=== PATIENT | female | born 1980 | race Caucasian/White ===

== ENCOUNTER → 2016-03-06 | Outpatient (CLI) | payer BC ==
[~2016-03-06] MED LIST: ATEN25TA PO; ESCI10TA2 PO; TRAM50TA2 PO
--- NOTE | 2016-03-06 09:32 | REP ---
Clinical: Nephrolithiasis. Technique: Two supine views of the abdomen and pelvis. Comparison: 02/15/2016. Findings: Evidence for 5 mm calculus in the lower pole left kidney. Further evaluation of the urinary tract system is limited due to overlying bowel gas. No evidence for bowel obstruction. Evidence for prior cholecystectomy noted. Skeletal structures are intact and stable. Impression: Suspected 5 mm nonobstructing left intrarenal calculus. Signed by Willem Abbasi MD 03/06/2016 09:24 A
== END ==
LOC: M SMT 08:31
PROVIDERS: ATTEND Nurse Practitioner Women's Health
DX: N20.0 Calculus of kidney (principal)

== ENCOUNTER → 2016-05-27 | Outpatient (REF) | payer BC | LOC: M SMT 13:28 | PROVIDERS: ATTEND Nurse Practitioner Women's Health | DX: R30.0 Dysuria (principal) ==

== ENCOUNTER → 2016-05-29 | Outpatient (CLI) | payer BC ==
--- NOTE | 2016-05-30 08:38 | REP ---
CT abdomen pelvis without IV and oral contrast: Comparison is 02/01/2016. On the current study there is a calcification along the posterior wall of the urinary bladder slightly to the left of midline measuring eight by 4 mm. There is left hydronephrosis and hydroureter. On the comparison study there was a 7 mm calculus in the proximal left ureter just distal to the UPJ. There is no calcification in this location today. There are no left renal calculi. There are no right renal or ureteral calculi. There is no perinephric stranding on the right or the left. The visualized lung marvin are unremarkable. The unenhanced hepatic parenchyma, pancreas and spleen are unremarkable. There are surgical clips in the gallbladder fossa, unchanged. The adrenals and abdominal aorta are unremarkable. The bowel and mesentery are unremarkable. Pelvis: The appendix cannot be identified, however there is no pericecal inflammation or abscess. The uterus and adnexa are unremarkable except for occasional phleboliths in the previous described left bladder/distal ureteral calculus. There is no ascites or adenopathy. The pelvic bowel loops are unremarkable. Impression: There is a calculus along the posterior wall of the urinary bladder slightly to the left of midline as described. This calculus could be at the distal tip of the left ureter could have passed into the urinary bladder. There is left hydronephrosis. On the comparison study there was a calculus in the proximal left ureter just distal to the UPJ. Signed by Brett Ruelas MD 05/30/2016 08:31 A
== END ==
LOC: M RAD 18:03
PROVIDERS: ATTEND Nurse Practitioner Women's Health
DX: R10.9 Unspecified abdominal pain (principal)

== ENCOUNTER → 2016-06-05 | Outpatient (REF) | payer BC | LOC: M SMT 12:46 | PROVIDERS: ATTEND Nurse Practitioner Women's Health | DX: N20.0 Calculus of kidney (principal) ==

== ENCOUNTER → 2017-03-14 | Outpatient (REF) | payer OTHER ==
[2017-03-14 18:41] LABS: RHEUMATOID FACTOR QUANT < 10.0 IU/ML (0-15.0)
[2017-03-17 14:11] LABS: ANTINUCLEAR ANTIBODIES DIRECT Negative (Negative)
== END ==
LOC: M LAB REF 16:33
DX: M25.579 Pain in unspecified ankle and joints of unspecified foot (principal)

== ENCOUNTER → 2017-04-11 | Outpatient (REF) | payer OTHER | LOC: M LAB REF 12:58 | DX: J11.1 Influenza due to unidentified influenza virus with other respiratory manifestations (principal) ==

== ENCOUNTER → 2018-09-28 | Outpatient (REF) | payer OTHER ==
[2018-10-01 14:51] LABS: HPV HYBRID CAPTURE II Negative (Negative)
== END ==
LOC: M SFHCPLAZ 11:13
PROVIDERS: ATTEND Family Medicine
DX: Z12.4 Encounter for screening for malignant neoplasm of cervix (principal); R68.89 Other general symptoms and signs
CPT/HCPCS: 36415; 84443; 87624; G0123

== ENCOUNTER → 2019-07-20 | Outpatient (REF) | payer OTHER ==
[~2019-07-20] MED LIST changes: +BARI1CAP PO; +BIOT5TAB3 PO; +BISO5TAB14 PO; +BLAC1CAP2 PO; +CLAR10CA3 PO; +FERR325T16 PO; +LEXA1TAB2 PO; +MIRA3350 PO; +OMEP-218 PO; +VITA250T4 PO
[2019-07-20 22:45] LABS: CHLAMYDIA DNA AMPLIFICATION NEGATIVE (NEGATIVE); GC DNA AMPLIFICATION NEGATIVE (NEGATIVE)
== END ==
LOC: M SFHCPLAZ 14:43
PROVIDERS: ATTEND Family Medicine
DX: Z11.3 Encounter for screening for infections with a predominantly sexual mode of transmission (principal)

== ENCOUNTER → 2019-08-04 | Outpatient (CLI) | payer OTHER ==
[~2019-08-04] MED LIST changes: +ESCI5SOL3 PO
[2019-08-04 12:34] LABS: BASO % 0.5 % (0.0-1.0); EOS # 0.1 10^3/uL (0.0-0.5); EOS % 1.2 % (0.0-3.0); HEMATOCRIT 39.4 % (36.0-47.0); HEMOGLOBIN 12.9 g/dl (12.0-15.5); LYMPH # 1.8 10^3/uL (1.5-5.0); LYMPH % 31.9 % (24.0-44.0); MEAN CORPUSCULAR HEMOGLOBIN 29.9 pg (27.0-33.0); MEAN CORPUSCULAR HGB CONC 32.7 g/dl (32.0-36.5); MEAN CORPUSCULAR VOLUME 91.4 fl (80.0-96.0); MONO # 0.4 10^3/uL (0.0-0.8); MONO % 7.3 % (0.0-5.0); NEUTROPHILS # 3.4 10^3/uL (1.5-8.5); NEUTROPHILS % 58.9 % (36.0-66.0); PLATELET COUNT, AUTOMATED 279 10^3/uL (150-450); RED BLOOD COUNT 4.31 10^6/uL (4.00-5.40); WHITE BLOOD COUNT 5.8 10^3/uL (4.0-10.0)
[2019-08-04 13:06] LABS: PERCENT SATURATION 36.3 % (13.2-45.0)
[2019-08-04 13:08] LABS: FOLATE 18.8 NG/ML
== END ==
LOC: M WUC 10:43
PROVIDERS: ATTEND Internal Medicine Hematology
DX: E61.1 Iron deficiency (principal)

== ENCOUNTER → 2019-09-28 | Outpatient (REF) | payer OTHER ==
[~2019-09-28] MED LIST changes: +LEXA1TAB PO
[2019-11-08 06:27] LABS: COPPER PLASMA SEE SEPARATE REPORT; VITAMIN B6,PYRIDOXAL PHOSPHATE See Separate Report; ZINC PLASMA See Separate Report
[2019-11-08 06:28] LABS: VITAMIN B1 LEVEL WHOLE BLOOD See Separate Report
[2019-11-23 10:26] LABS: ALBUMIN 3.9 GM/DL (3.2-5.2); ALT/SGPT 34 U/L (12-78); BILIRUBIN,DIRECT < 0.1 MG/DL (0.0-0.2); BILIRUBIN,TOTAL 0.3 MG/DL (0.2-1.0); FERRITIN 106 NG/ML (8-252); FOLATE 23.6 NG/ML (>5.4); IRON (FE) 99 UG/DL (50-170); PERCENT SATURATION 46.7 % (13.2-45.0); PREALBUMIN 20.1 MG/DL (20.0-40.0); TOTAL IRON BINDING CAPACITY 212 UG/DL (250-450); TOTAL PROTEIN 6.6 GM/DL (6.4-8.2)
== END ==
LOC: M PLALAB 11:04
PROVIDERS: ATTEND Physician Assistant
DX: Z98.84 Bariatric surgery status (principal)

== ENCOUNTER → 2019-12-02 | Outpatient (CLI) | payer OTHER ==
[2019-12-02 16:44] LABS: BASO % 0.5 % (0.0-1.0); EOS # 0.1 10^3/uL (0.0-0.5); EOS % 1.4 % (0.0-3.0); HEMATOCRIT 38.5 % (36.0-47.0); HEMOGLOBIN 12.5 g/dl (12.0-15.5); LYMPH # 2.2 10^3/uL (1.5-5.0); LYMPH % 37.8 % (24.0-44.0); MEAN CORPUSCULAR HEMOGLOBIN 29.7 pg (27.0-33.0); MEAN CORPUSCULAR HGB CONC 32.5 g/dl (32.0-36.5); MEAN CORPUSCULAR VOLUME 91.4 fl (80.0-96.0); MONO # 0.4 10^3/uL (0.0-0.8); MONO % 7.2 % (0.0-5.0); NEUTROPHILS # 3.1 10^3/uL (1.5-8.5); NEUTROPHILS % 52.9 % (36.0-66.0); PLATELET COUNT, AUTOMATED 276 10^3/uL (150-450); RED BLOOD COUNT 4.21 10^6/uL (4.00-5.40); WHITE BLOOD COUNT 5.9 10^3/uL (4.0-10.0)
[2019-12-02 17:18] LABS: PERCENT SATURATION 28.9 % (13.2-45.0)
== END ==
LOC: M LAB 15:55
PROVIDERS: ATTEND Specialist
DX: E61.1 Iron deficiency (principal)

== ENCOUNTER → 2020-02-15 | Outpatient (CLI) | payer OTHER ==
[2020-02-15 15:55] LABS: BASO % 0.6 % (0.0-1.0); EOS # 0.1 10^3/uL (0.0-0.5); EOS % 1.7 % (0.0-3.0); HEMATOCRIT 40.5 % (36.0-47.0); HEMOGLOBIN 12.7 g/dl (12.0-15.5); LYMPH # 2.1 10^3/uL (1.5-5.0); LYMPH % 32.5 % (24.0-44.0); MEAN CORPUSCULAR HEMOGLOBIN 29.1 pg (27.0-33.0); MEAN CORPUSCULAR HGB CONC 31.4 g/dl (32.0-36.5); MEAN CORPUSCULAR VOLUME 92.7 fl (80.0-96.0); MONO # 0.5 10^3/uL (0.0-0.8); NEUTROPHILS # 3.7 10^3/uL (1.5-8.5); PLATELET COUNT, AUTOMATED 278 10^3/uL (150-450); RED BLOOD COUNT 4.37 10^6/uL (4.00-5.40); WHITE BLOOD COUNT 6.4 10^3/uL (4.0-10.0)
[2020-02-15 16:25] LABS: PERCENT SATURATION 30.7 % (13.2-45.0)
== END ==
LOC: M PLALAB 11:43
PROVIDERS: ATTEND Specialist
DX: D50.9 Iron deficiency anemia, unspecified (principal); Z88.2 Allergy status to sulfonamides

== ENCOUNTER → 2020-06-06 | Outpatient (REF) | payer OTHER ==
[~2020-06-06] MED LIST changes: +ESCI10TA16 PO; -ESCI10TA2 PO; +FERR324T21 PO; -FERR325T16 PO
[2020-06-06 11:18] LABS: BASO % 0.7 % (0.0-1.0); EOS # 0.1 10^3/uL (0.0-0.5); EOS % 1.7 % (0.0-3.0); HEMATOCRIT 41.5 % (36.0-47.0); HEMOGLOBIN 13.3 g/dl (12.0-15.5); LYMPH # 1.8 10^3/uL (1.5-5.0); LYMPH % 31.2 % (24.0-44.0); MEAN CORPUSCULAR HEMOGLOBIN 29.5 pg (27.0-33.0); MONO # 0.5 10^3/uL (0.0-0.8); MONO % 7.7 % (2.0-8.0); NEUTROPHILS # 3.4 10^3/uL (1.5-8.5); NEUTROPHILS % 58.4 % (36.0-66.0); PLATELET COUNT, AUTOMATED 255 10^3/uL (150-450); RED BLOOD COUNT 4.51 10^6/uL (4.00-5.40); WHITE BLOOD COUNT 5.8 10^3/uL (4.0-10.0)
== END ==
LOC: M PLALAB 07:59
PROVIDERS: ATTEND Family Medicine
DX: R59.0 Localized enlarged lymph nodes (principal)

== ENCOUNTER → 2020-12-07 | Outpatient (CLI) | payer OTHER ==
--- NOTE | 2020-12-08 11:22 | DEXAMM ---
INDICATION: HX GASTRIC BYPASS, IRON DEFICIENCY,HYPOGLYCEMIA. COMPARISON: None. TECHNIQUE: Bone density was measured using dual-energy x-ray absorptiometry (DEXA). FINDINGS: AP SPINE L1-L4 BMD 1.082 g/cm2 Young Adult T-Score -0.9 Age Matched Z-Score -0.9. LT FEMUR, TOTAL BMD 1.026 g/cm2 Young Adult T-Score 0.1 Age Matched Z-Score 0.4. LT NECK BMD 0.968 g/cm2 Young Adult T-Score -0.5 Age Matched Z-Score 0.0. RT FEMUR, TOTAL BMD 1.014 g/cm2 Young Adult T-Score 0.1 Age Matched Z-Score 0.3. RT NECK BMD 0.951 g/cm2 Young Adult T-Score -0.6 Age Matched Z-Score -0.2. IMPRESSION: There is normal bone density of the spine. There is normal bone density of the left hip. There is normal bone density of the right hip. FOLLOW-UP: Recommendation for the next bone density exam: 5 years. <Electronically signed by Brett Hughes > 12/08/20 [id number]
== END ==
LOC: M WHC 15:15
PROVIDERS: ATTEND Surgery
DX: E61.1 Iron deficiency (principal); E16.2 Hypoglycemia, unspecified; Z71.3 Dietary counseling and surveillance; Z98.84 Bariatric surgery status

== ENCOUNTER → 2020-12-14 | Outpatient (CLI) | payer OTHER ==
[~2020-12-14] MED LIST changes: +E-Z-GAS II EFFERVESCENT PACKET (SODIUM BICARB./CITRIC ACID/SIMETHICONE) As Ordered ONE; +E-Z-HD 98% w/w 340GM SUSP BTL As Ordered ONE; +E-Z-PAQUE 96% w/w SUSP 176GM BTL As Ordered ONE; +GASTROGRAFIN SOLUTION 30ML (Q9963) As Ordered ONE
[2020-12-14 08:36] LABS: HEMATOCRIT 40.8 % (36.0-47.0); HEMOGLOBIN 13.3 g/dl (12.0-15.5); MEAN CORPUSCULAR HEMOGLOBIN 30.2 pg (27.0-33.0); MEAN CORPUSCULAR HGB CONC 32.6 g/dl (32.0-36.5); MEAN CORPUSCULAR VOLUME 92.5 fl (80.0-96.0); PLATELET COUNT, AUTOMATED 275 10^3/uL (150-450); RED BLOOD COUNT 4.41 10^6/uL (4.00-5.40); WHITE BLOOD COUNT 4.7 10^3/uL (4.0-10.0)
[2020-12-14 09:11] LABS: BILIRUBIN,DIRECT 0.1 MG/DL (0.0-0.2); BILIRUBIN,TOTAL 0.4 MG/DL (0.2-1.0)
[2020-12-14 09:12] LABS: ALBUMIN 3.5 GM/DL (3.2-5.2); CHOLESTEROL RISK RATIO 1.939 (<5); MAGNESIUM LEVEL 2.2 MG/DL (1.8-2.4); PERCENT SATURATION 34.5 % (13.2-45.0); THYROID STIMULATING HORMONE 0.494 uIU/ML (0.358-3.740); TOTAL PROTEIN 6.3 GM/DL (6.4-8.2)
[2020-12-14 13:24] LABS: FOLATE 17.5 NG/ML (>5.4); TOTAL 25(OH) VITAMIN D 38.7 NG/ML (30.0-100.0)
--- NOTE | 2020-12-15 16:23 | REP ---
INDICATION: LOWER ABD PAIN-LABS FIRST. COMPARISON: None TECHNIQUE: This procedure was performed by CHARLOTTE Gaffney, under the direct supervision of Dr. Hughes. Images were reviewed with Dr. Hughes prior to dictation. Because the patient is status post [id number]-Y surgery liquid barium was given in the erect position as well as in the prone oblique position in order to perform a single contrast upper GI examination. Additional liquid barium was given at the end of the examination in order to perform a small-bowel follow-through. FINDINGS: The social services specialist film shows no organomegaly or pathological masses. There is a moderate amount of stool seen within the colon. The intestinal gas pattern is unremarkable. The oral and pharyngeal stages of deglutition were unremarkable. Esophageal transport is prompt and efficient and there is no evidence of esophagitis, stricture, or mucosal ring. There is evidence of a small hiatal hernia. Gastroesophageal reflux was not observed on this examination. The remaining stomach ospina are normally outlined. There is free flow of contrast through the anastomosis into the small intestine. No stricture or ulcer is visualized. The visualized portion of the proximal small bowel appears normal in course and caliber. Additional liquid barium was administered at the end of the end of the exam and followed through the small bowel to the level of the terminal ileum. Small bowel transit time is approximately 335 minutes. During fluoroscopy gentle palpation shows all loops are freely movable and pliable. There are no fixture angulated loops. The small bowel mucosal pattern is normal in course and caliber. There is no transition to suggest a partial small bowel obstruction. Terminal ileum was not visualized well due to crowding of small bowel loops. IMPRESSION: There is a small hiatal hernia. Small bowel follow-through transit time was approximately 335 minutes. 1.7 minutes of fluoroscopy time was utilized for this procedure. Some fluoroscopic images are performed with last image hold technology. These images require no additional radiation. <Electronically signed by Sheila Rodriguez > 12/15/20 [id number] <Electronically signed by Brett Hughes > 12/15/20 [id number]
== END ==
LOC: M RAD 07:27
PROVIDERS: ATTEND Surgery
DX: R10.30 Lower abdominal pain, unspecified (principal); Z98.84 Bariatric surgery status; Z71.3 Dietary counseling and surveillance; K44.9 Diaphragmatic hernia without obstruction or gangrene
CPT/HCPCS: 36415; 74246; 80061; 80076; 82306; 82525; 82607; 82728; 82746; 83550; 83735; 84255; 84425; 84443; 84590; 84630; 85027; Q9963

== ENCOUNTER → 2021-03-16 | Outpatient (CLI) | payer OTHER ==
[~2021-03-16] MED LIST changes: -E-Z-GAS II EFFERVESCENT PACKET (SODIUM BICARB./CITRIC ACID/SIMETHICONE) As Ordered ONE; -E-Z-HD 98% w/w 340GM SUSP BTL As Ordered ONE; -E-Z-PAQUE 96% w/w SUSP 176GM BTL As Ordered ONE; -GASTROGRAFIN SOLUTION 30ML (Q9963) As Ordered ONE; +OMEP-173 PO; -OMEP-218 PO
[2021-03-16 10:43] LABS: BASO % 0.5 % (0.0-1.0); EOS # 0.1 10^3/uL (0.0-0.5); EOS % 0.9 % (0.0-3.0); HEMOGLOBIN 11.9 g/dl (12.0-15.5); LYMPH # 1.8 10^3/uL (1.5-5.0); LYMPH % 22.6 % (24.0-44.0); MEAN CORPUSCULAR HEMOGLOBIN 29.5 pg (27.0-33.0); MEAN CORPUSCULAR HGB CONC 32.2 g/dl (32.0-36.5); MEAN CORPUSCULAR VOLUME 91.6 fl (80.0-96.0); MONO # 0.7 10^3/uL (0.0-0.8); MONO % 8.2 % (2.0-8.0); NEUTROPHILS # 5.4 10^3/uL (1.5-8.5); NEUTROPHILS % 67.4 % (36.0-66.0); PLATELET COUNT, AUTOMATED 348 10^3/uL (150-450); RED BLOOD COUNT 4.04 10^6/uL (4.00-5.40)
[2021-03-16 11:21] LABS: ALBUMIN 3.2 GM/DL (3.2-5.2); ALT/SGPT 17 U/L (12-78); BILIRUBIN,TOTAL 0.3 MG/DL (0.2-1.0); BLOOD UREA NITROGEN 9 MG/DL (7-18); CALCIUM LEVEL 8.5 MG/DL (8.5-10.1); CARBON DIOXIDE LEVEL 30 MEQ/L (21-32); CHLORIDE LEVEL 109 MEQ/L (98-107); CREATININE FOR GFR 0.63 MG/DL (0.55-1.30); FERRITIN 90 NG/ML (8-252); GLOMERULAR FILTRATION RATE > 60.0 (>58); GLUCOSE, FASTING 77 MG/DL (70-100); IRON (FE) 28 UG/DL (50-170); PERCENT SATURATION 13.4 % (13.2-45.0); POTASSIUM SERUM 4.1 MEQ/L (3.5-5.1); SODIUM LEVEL 141 MEQ/L (136-145); TOTAL IRON BINDING CAPACITY 209 UG/DL (250-450); TOTAL PROTEIN 6.4 GM/DL (6.4-8.2)
== END ==
LOC: M PLALAB 09:19
PROVIDERS: ATTEND Specialist
DX: D50.9 Iron deficiency anemia, unspecified (principal); Z88.2 Allergy status to sulfonamides

== ENCOUNTER → 2021-05-05 | Outpatient (CLI) | payer OTHER ==
[~2021-05-05] MED LIST changes: +BACL10TA2
== END ==
LOC: M LABSMTC 10:53
PROVIDERS: ATTEND Anesthesiology
DX: Z01.812 Encounter for preprocedural laboratory examination (principal); Z20.822 Contact with and (suspected) exposure to COVID-19

== ENCOUNTER 2021-05-10 09:57 | Day surgery (SDC) | payer OTHER ==
[~2021-05-10] VITALS: Ht 165.1 cm; Wt 78.5 kg
[~2021-05-10 09:57] MED LIST changes: +NS 1,000 ML IV ONE
[2021-05-10] MEDS ORDERED: SING10TA32 PO (10:19)
[2021-05-10] MEDS ORDERED: propofoL 200 MG/20 ML VIAL As Ordered ONE ×3 (10:57→11:59)
[2021-05-10] MEDS ORDERED: LIDOCAINE 2% 100MG/5ML SDV (FOR ANES.) As Ordered ONE (10:57)
[2021-05-10 12:33] VITALS: BP 120/68
== END 2021-05-10 12:34 | disposition home or self-care (01) ==
LOC: M OPP 09:57
PROVIDERS: ATTEND Internal Medicine Gastroenterology
DX: R19.4 Change in bowel habit (principal); R10.13 Epigastric pain; K63.5 Polyp of colon; D13.1 Benign neoplasm of stomach; K64.8 Other hemorrhoids; Z98.0 Intestinal bypass and anastomosis status; K58.9 Irritable bowel syndrome, unspecified; F41.9 Anxiety disorder, unspecified; G43.909 Migraine, unspecified, not intractable, without status migrainosus; Z88.2 Allergy status to sulfonamides; Z79.899 Other long term (current) drug therapy; Z87.442 Personal history of urinary calculi

== ENCOUNTER → 2021-09-18 | Outpatient (CLI) | payer OTHER ==
[~2021-09-18] MED LIST changes: -NS 1,000 ML IV ONE; +PHEN30CA21; +SING10TA32 PO
[2021-09-18 14:31] LABS: CHOLESTEROL RISK RATIO 2.197 (<5)
== END ==
LOC: M PLALAB 09:22
PROVIDERS: ATTEND Physician Assistant
DX: Z13.220 Encounter for screening for lipoid disorders (principal)

== ENCOUNTER → 2021-09-18 | Outpatient (CLI) | payer OTHER ==
[2021-09-18 14:17] LABS: BASO # 0.1 10^3/uL (0.0-0.2); BASO % 1.3 % (0.0-1.0); EOS # 0.1 10^3/uL (0.0-0.5); EOS % 1.3 % (0.0-3.0); HEMATOCRIT 42.4 % (36.0-47.0); HEMOGLOBIN 13.8 g/dl (12.0-15.5); LYMPH # 1.6 10^3/uL (1.5-5.0); LYMPH % 33.3 % (24.0-44.0); MEAN CORPUSCULAR HGB CONC 32.5 g/dl (32.0-36.5); MEAN CORPUSCULAR VOLUME 92.2 fl (80.0-96.0); MONO # 0.3 10^3/uL (0.0-0.8); MONO % 5.8 % (2.0-8.0); NEUTROPHILS # 2.7 10^3/uL (1.5-8.5); NEUTROPHILS % 58.1 % (36.0-66.0); PLATELET COUNT, AUTOMATED 293 10^3/uL (150-450); WHITE BLOOD COUNT 4.7 10^3/uL (4.0-10.0)
[2021-09-18 14:31] LABS: PERCENT SATURATION 39.8 % (13.2-45.0)
== END ==
LOC: M PLALAB 09:19
PROVIDERS: ATTEND Specialist
DX: D50.9 Iron deficiency anemia, unspecified (principal)

== ENCOUNTER → 2021-09-20 | Outpatient (CLI) | payer OTHER | LOC: M PLAIMG 08:16 | PROVIDERS: ATTEND Physician Assistant | DX: M77.32 Calcaneal spur, left foot (principal); M79.672 Pain in left foot ==

== ENCOUNTER → 2021-10-03 | Outpatient (CLI) | payer OTHER | LOC: M RAD 09:20 | PROVIDERS: ATTEND Podiatrist Foot & Ankle Surgery | DX: M79.672 Pain in left foot (principal) ==

== ENCOUNTER → 2022-01-01 | Outpatient (REF) | payer OTHER | LOC: M SFHCPLAZ 08:00 | PROVIDERS: ATTEND Physician Assistant | DX: R30.0 Dysuria (principal) ==

== ENCOUNTER → 2022-04-15 | Outpatient (CLI) | payer OTHER ==
[2022-04-15 16:28] LABS: BASO % 0.5 % (0.0-1.0); EOS # 0.1 10^3/uL (0.0-0.5); EOS % 0.7 % (0.0-3.0); HEMATOCRIT 39.4 % (36.0-47.0); HEMOGLOBIN 12.7 g/dl (12.0-15.5); LYMPH # 2.2 10^3/uL (1.5-5.0); LYMPH % 30.3 % (24.0-44.0); MEAN CORPUSCULAR HEMOGLOBIN 29.9 pg (27.0-33.0); MEAN CORPUSCULAR HGB CONC 32.2 g/dl (32.0-36.5); MEAN CORPUSCULAR VOLUME 92.7 fl (80.0-96.0); MONO # 0.5 10^3/uL (0.0-0.8); MONO % 6.9 % (2.0-8.0); NEUTROPHILS # 4.5 10^3/uL (1.5-8.5); NEUTROPHILS % 61.2 % (36.0-66.0); PLATELET COUNT, AUTOMATED 306 10^3/uL (150-450); RED BLOOD COUNT 4.25 10^6/uL (4.00-5.40); WHITE BLOOD COUNT 7.4 10^3/uL (4.0-10.0)
[2022-04-15 16:42] LABS: ALBUMIN 3.6 G/DL (3.2-5.2); ALKALINE PHOSPHATASE 57 U/L (46-116); ALT/SGPT 21 U/L (7.0-40); AST/SGOT 23 U/L (<34); BILIRUBIN,TOTAL 0.4 MG/DL (0.3-1.2); BLOOD UREA NITROGEN 15 MG/DL (9-23); CALCIUM LEVEL 9.2 MG/DL (8.5-10.1); CARBON DIOXIDE LEVEL 28 MMOL/L (20-31); CHLORIDE LEVEL 107 MMOL/L (98-107); CREATININE FOR GFR 0.75 MG/DL (0.55-1.30); FERRITIN 16.8 NG/ML (7.3-270.7); GLOMERULAR FILTRATION RATE > 60.0 (>58); GLUCOSE, FASTING 87 MG/DL (60-100); IRON (FE) 149 UG/DL (50-170); PERCENT SATURATION 48.4 % (13.2-45.0); POTASSIUM SERUM 4.2 MMOL/L (3.5-5.1); SODIUM LEVEL 141 MMOL/L (136-145); TOTAL IRON BINDING CAPACITY 308 UG/DL (250-425)
[2022-04-15 16:44] LABS: FOLATE > 24.00 NG/ML (>5.4); VITAMIN B12 LEVEL 326 PG/ML (211-911)
== END ==
LOC: M PLALAB 12:24
PROVIDERS: ATTEND Internal Medicine
DX: D50.9 Iron deficiency anemia, unspecified (principal); K90.49 Malabsorption due to intolerance, not elsewhere classified

== ENCOUNTER → 2022-05-14 | Outpatient (CLI) | payer OTHER ==
[~2022-05-14] MED LIST changes: +MONT-5 PO; -SING10TA32 PO
[2022-05-14 11:31] LABS: FREE T4 1.01 NG/DL (0.89-1.76); THYROID STIMULATING HORMONE 1.07 uIU/ML (0.55-4.78)
== END ==
LOC: M PLALAB 08:00
PROVIDERS: ATTEND Physician Assistant
DX: E66.9 Obesity, unspecified (principal)

== ENCOUNTER → 2022-07-17 | Outpatient (CLI) | payer OTHER ==
[2022-07-17 13:43] LABS: BASO % 0.5 % (0.0-1.0); EOS # 0.1 10^3/uL (0.0-0.5); EOS % 1.6 % (0.0-3.0); HEMATOCRIT 37.9 % (36.0-47.0); HEMOGLOBIN 12.4 g/dl (12.0-15.5); LYMPH # 1.7 10^3/uL (1.5-5.0); LYMPH % 31.2 % (24.0-44.0); MEAN CORPUSCULAR HEMOGLOBIN 29.8 pg (27.0-33.0); MEAN CORPUSCULAR HGB CONC 32.7 g/dl (32.0-36.5); MEAN CORPUSCULAR VOLUME 91.1 fl (80.0-96.0); MONO # 0.5 10^3/uL (0.0-0.8); MONO % 8.5 % (2.0-8.0); NEUTROPHILS # 3.2 10^3/uL (1.5-8.5); NEUTROPHILS % 57.8 % (36.0-66.0); PLATELET COUNT, AUTOMATED 272 10^3/uL (150-450); RED BLOOD COUNT 4.16 10^6/uL (4.00-5.40); WHITE BLOOD COUNT 5.5 10^3/uL (4.0-10.0)
[2022-07-17 14:06] LABS: ALBUMIN 3.6 G/DL (3.2-5.2); ALKALINE PHOSPHATASE 67 U/L (46-116); ALT/SGPT 18 U/L (7.0-40); AST/SGOT 26 U/L (<34); BILIRUBIN,TOTAL 0.3 MG/DL (0.3-1.2); BLOOD UREA NITROGEN 14 MG/DL (9-23); CALCIUM LEVEL 8.4 MG/DL (8.5-10.1); CARBON DIOXIDE LEVEL 28 MMOL/L (20-31); CHLORIDE LEVEL 107 MMOL/L (98-107); CREATININE FOR GFR 0.81 MG/DL (0.55-1.30); GLOMERULAR FILTRATION RATE > 60.0 (>58); GLUCOSE, FASTING 99 MG/DL (60-100); IRON (FE) 58 UG/DL (50-170); PERCENT SATURATION 18.9 % (13.2-45.0); SODIUM LEVEL 139 MMOL/L (136-145); TOTAL IRON BINDING CAPACITY 307 UG/DL (250-425); TOTAL PROTEIN 6.1 G/DL (5.7-8.2)
[2022-07-17 14:08] LABS: FERRITIN 16.4 NG/ML (7.3-270.7)
== END ==
LOC: M PLALAB 12:01
PROVIDERS: ATTEND Specialist
DX: D50.9 Iron deficiency anemia, unspecified (principal); Z98.84 Bariatric surgery status

== ENCOUNTER → 2022-07-26 | Outpatient (REF) | payer OTHER | LOC: M SFHCWAGY 10:12 | PROVIDERS: ATTEND Nurse Practitioner Family | DX: Z12.4 Encounter for screening for malignant neoplasm of cervix (principal); B37.31 Acute candidiasis of vulva and vagina | CPT/HCPCS: 87624; G0123 ==

== ENCOUNTER → 2022-08-19 | Outpatient (CLI) | payer OTHER | LOC: M WHC 09:53 | PROVIDERS: ATTEND Nurse Practitioner Family | DX: Z12.31 Encounter for screening mammogram for malignant neoplasm of breast (principal); R92.8 Other abnormal and inconclusive findings on diagnostic imaging of breast; N63.20 Unspecified lump in the left breast, unspecified quadrant ==

== ENCOUNTER → 2022-09-12 | Outpatient (REF) | payer OTHER | LOC: M SFHCPLAZ 10:16 | PROVIDERS: ATTEND Physician Assistant | DX: J02.9 Acute pharyngitis, unspecified (principal) ==

== ENCOUNTER → 2022-10-01 | Outpatient (CLI) | payer OTHER | LOC: M PLAIMG 10:40 | PROVIDERS: ATTEND Podiatrist Foot & Ankle Surgery | DX: M25.571 Pain in right ankle and joints of right foot (principal); M77.51 Other enthesopathy of right foot and ankle; M77.31 Calcaneal spur, right foot; S93.491A Sprain of other ligament of right ankle, initial encounter; X58.XXXA Exposure to other specified factors, initial encounter; Y92.9 Unspecified place or not applicable; Y93.9 Activity, unspecified; Y99.9 Unspecified external cause status ==

== ENCOUNTER → 2022-10-14 | Outpatient (CLI) | payer OTHER ==
[~2022-10-14] MED LIST changes: +BUPR150T12
[2022-10-14 09:07] LABS: BASO # 0.1 10^3/uL (0.0-0.2); BASO % 1.1 % (0.0-1.0); EOS # 0.1 10^3/uL (0.0-0.5); EOS % 1.1 % (0.0-3.0); HEMATOCRIT 42.2 % (36.0-47.0); HEMOGLOBIN 13.4 g/dl (12.0-15.5); LYMPH # 1.4 10^3/uL (1.5-5.0); LYMPH % 25.1 % (24.0-44.0); MEAN CORPUSCULAR HEMOGLOBIN 29.5 pg (27.0-33.0); MEAN CORPUSCULAR HGB CONC 31.8 g/dl (32.0-36.5); MEAN CORPUSCULAR VOLUME 92.7 fl (80.0-96.0); MONO # 0.4 10^3/uL (0.0-0.8); MONO % 6.8 % (2.0-8.0); NEUTROPHILS # 3.6 10^3/uL (1.5-8.5); NEUTROPHILS % 65.5 % (36.0-66.0); PLATELET COUNT, AUTOMATED 275 10^3/uL (150-450); RED BLOOD COUNT 4.55 10^6/uL (4.00-5.40); WHITE BLOOD COUNT 5.4 10^3/uL (4.0-10.0)
[2022-10-14 09:32] LABS: ALBUMIN 3.5 G/DL (3.2-5.2); ALKALINE PHOSPHATASE 61 U/L (46-116); ALT/SGPT 11 U/L (7.0-40); AST/SGOT 10 U/L (<34); BILIRUBIN,TOTAL 0.4 MG/DL (0.3-1.2); BLOOD UREA NITROGEN 11 MG/DL (9-23); CALCIUM LEVEL 8.5 MG/DL (8.5-10.1); CARBON DIOXIDE LEVEL 27 MMOL/L (20-31); CHLORIDE LEVEL 109 MMOL/L (98-107); GLOMERULAR FILTRATION RATE > 60.0 (>58); GLUCOSE, FASTING 112 MG/DL (60-100); IRON (FE) 79 UG/DL (50-170); PERCENT SATURATION 27.7 % (13.2-45.0); POTASSIUM SERUM 4.1 MMOL/L (3.5-5.1); SODIUM LEVEL 141 MMOL/L (136-145); TOTAL IRON BINDING CAPACITY 285 UG/DL (250-425)
[2022-10-14 09:34] LABS: FERRITIN 13.7 NG/ML (7.3-270.7)
== END ==
LOC: M LAB 08:20
PROVIDERS: ATTEND Specialist
DX: D50.9 Iron deficiency anemia, unspecified (principal); Z98.84 Bariatric surgery status

== ENCOUNTER → 2023-01-03 | Outpatient (CLI) | payer OTHER ==
[2023-01-03 09:35] LABS: IONIZED CALCIUM 4.6 MG/DL (4.5-5.3)
[2023-01-03 09:50] LABS: BASO % 0.8 % (0.0-1.0); EOS # 0.1 10^3/uL (0.0-0.5); EOS % 1.8 % (0.0-3.0); HEMATOCRIT 43.2 % (36.0-47.0); HEMOGLOBIN 13.9 g/dl (12.0-15.5); LYMPH # 1.6 10^3/uL (1.5-5.0); LYMPH % 31.5 % (24.0-44.0); MEAN CORPUSCULAR HEMOGLOBIN 29.6 pg (27.0-33.0); MEAN CORPUSCULAR HGB CONC 32.2 g/dl (32.0-36.5); MEAN CORPUSCULAR VOLUME 92.1 fl (80.0-96.0); MONO # 0.4 10^3/uL (0.0-0.8); MONO % 8.3 % (2.0-8.0); NEUTROPHILS # 2.9 10^3/uL (1.5-8.5); NEUTROPHILS % 57.4 % (36.0-66.0); PLATELET COUNT, AUTOMATED 288 10^3/uL (150-450); RED BLOOD COUNT 4.69 10^6/uL (4.00-5.40); WHITE BLOOD COUNT 5.1 10^3/uL (4.0-10.0)
[2023-01-03 10:07] LABS: HEMOGLOBIN A1c 4.9 % (4.0-6.0)
[2023-01-03 10:21] LABS: TOTAL IRON BINDING CAPACITY 316 UG/DL (250-425)
[2023-01-03 10:22] LABS: IRON (FE) 108 UG/DL (50-170); PERCENT SATURATION 34.2 % (13.2-45.0)
[2023-01-03 10:46] LABS: ALBUMIN 3.7 G/DL (3.2-5.2); ALKALINE PHOSPHATASE 62 U/L (46-116); ALT/SGPT 24 U/L (7.0-40); AST/SGOT 22 U/L (<34); BILIRUBIN,TOTAL 0.5 MG/DL (0.3-1.2); BLOOD UREA NITROGEN 13 MG/DL (9-23); CALCIUM LEVEL 8.6 MG/DL (8.5-10.1); CARBON DIOXIDE LEVEL 31 MMOL/L (20-31); CHLORIDE LEVEL 104 MMOL/L (98-107); CHOLESTEROL LEVEL 178 MG/DL (<200); CHOLESTEROL RISK RATIO 2.41 (<5); FERRITIN 16.9 NG/ML (7.3-270.7); FOLATE 17.12 NG/ML (>5.4); GLOMERULAR FILTRATION RATE > 60.0 (>58); GLUCOSE, FASTING 90 MG/DL (60-100); HDL CHOLESTEROL 73.8 MG/DL (>40); LDL CHOLESTEROL 92.2 MG/DL (<100); NON-HDL-C 104.2 MG/DL; POTASSIUM SERUM 4.3 MMOL/L (3.5-5.1); SODIUM LEVEL 140 MMOL/L (136-145); TOTAL 25(OH) VITAMIN D 34.7 NG/ML (20.0-100.0); TOTAL PROTEIN 6.3 G/DL (5.7-8.2); TRIGLYCERIDES LEVEL 60 MG/DL (<150); VITAMIN B12 LEVEL 463 PG/ML (211-911)
== END ==
LOC: M LAB 08:49 → M PLALAB 08:49
PROVIDERS: ATTEND Physician Assistant
DX: E44.0 Moderate protein-calorie malnutrition (principal); Z98.84 Bariatric surgery status

== ENCOUNTER → 2023-04-14 | Outpatient (CLI) | payer OTHER ==
[2023-04-14 11:54] LABS: BASO % 0.7 % (0.0-1.0); EOS # 0.2 10^3/uL (0.0-0.5); EOS % 2.6 % (0.0-3.0); HEMATOCRIT 40.8 % (36.0-47.0); HEMOGLOBIN 13.2 g/dl (12.0-15.5); LYMPH # 1.6 10^3/uL (1.5-5.0); LYMPH % 27.8 % (24.0-44.0); MEAN CORPUSCULAR HEMOGLOBIN 29.5 pg (27.0-33.0); MEAN CORPUSCULAR HGB CONC 32.4 g/dl (32.0-36.5); MEAN CORPUSCULAR VOLUME 91.3 fl (80.0-96.0); MONO # 0.5 10^3/uL (0.0-0.8); MONO % 7.9 % (2.0-8.0); NEUTROPHILS # 3.5 10^3/uL (1.5-8.5); NEUTROPHILS % 60.8 % (36.0-66.0); PLATELET COUNT, AUTOMATED 312 10^3/uL (150-450); RED BLOOD COUNT 4.47 10^6/uL (4.00-5.40); WHITE BLOOD COUNT 5.8 10^3/uL (4.0-10.0)
[2023-04-14 12:24] LABS: IRON (FE) 64 UG/DL (50-170)
[2023-04-14 12:25] LABS: ALBUMIN 3.3 G/DL (3.2-5.2); ALKALINE PHOSPHATASE 67 U/L (46-116); ALT/SGPT 12 U/L (7.0-40); AST/SGOT 15 U/L (<34); BILIRUBIN,TOTAL 0.2 MG/DL (0.3-1.2); BLOOD UREA NITROGEN 15 MG/DL (9-23); CALCIUM LEVEL 8.4 MG/DL (8.5-10.1); CARBON DIOXIDE LEVEL 29 MMOL/L (20-31); CHLORIDE LEVEL 111 MMOL/L (98-107); GLOMERULAR FILTRATION RATE > 60.0 (>58); GLUCOSE, FASTING 86 MG/DL (60-100); POTASSIUM SERUM 4.3 MMOL/L (3.5-5.1); SODIUM LEVEL 142 MMOL/L (136-145); TOTAL IRON BINDING CAPACITY 305 UG/DL (250-425); TOTAL PROTEIN 5.9 G/DL (5.7-8.2)
[2023-04-14 12:26] LABS: FERRITIN 10.2 NG/ML (7.3-270.7)
[2023-04-14 12:27] LABS: FOLATE 16.2 NG/ML (>5.4); VITAMIN B12 LEVEL 277 PG/ML (211-911)
== END ==
LOC: M LAB 11:06
PROVIDERS: ATTEND Specialist
DX: D50.9 Iron deficiency anemia, unspecified (principal); D51.9 Vitamin B12 deficiency anemia, unspecified

== ENCOUNTER → 2023-04-23 | Outpatient (CLI) | payer OTHER ==
[~2023-04-23] VITALS: Ht 165.1 cm; Wt 81.8 kg
[2023-04-23 15:10] VITALS: BP 129/70; O2SAT 100
[2023-04-23] MEDS: FERRIC CARBOXYMALTOSE INJ 750 MG in NS 250 ML (>50kg) IV ONE (15:24)
[2023-04-23 16:36] VITALS: BP 110/58; O2SAT 100
== END ==
LOC: M INFU 14:53
PROVIDERS: ATTEND Nurse Practitioner
DX: D50.9 Iron deficiency anemia, unspecified (principal); Z88.2 Allergy status to sulfonamides
CPT/HCPCS: 96365; J1439

== ENCOUNTER → 2023-05-23 | Outpatient (REF) | payer OTHER | LOC: M SFHCPLAZ 15:05 | PROVIDERS: ATTEND Physician Assistant | DX: J02.9 Acute pharyngitis, unspecified (principal) ==

== ENCOUNTER 2023-07-29 16:21 | Emergency (ER) | payer OTHER ==
[~2023-07-29 16:21] MED LIST changes: +VITA250T27 PO; -VITA250T4 PO
== END 2023-07-29 17:24 | disposition left against medical advice (07) ==
LOC: M ED 16:21
DX: Z53.21 Procedure and treatment not carried out due to patient leaving prior to being seen by health care provider (principal)

== ENCOUNTER → 2024-05-24 | Outpatient (CLI) | payer OTHER ==
[2024-05-24 17:46] LABS: BASO # 0.1 10^3/uL (0.0-0.2); BASO % 0.8 % (0.0-1.0); EOS # 0.1 10^3/uL (0.0-0.5); EOS % 0.8 % (0.0-3.0); HEMATOCRIT 40.7 % (36.0-47.0); LYMPH # 2.3 10^3/uL (1.5-5.0); LYMPH % 35.5 % (24.0-44.0); MEAN CORPUSCULAR HEMOGLOBIN 29.5 pg (27.0-33.0); MEAN CORPUSCULAR HGB CONC 31.9 g/dl (32.0-36.5); MEAN CORPUSCULAR VOLUME 92.3 fl (80.0-96.0); MONO # 0.4 10^3/uL (0.0-0.8); MONO % 5.8 % (2.0-8.0); NEUTROPHILS # 3.6 10^3/uL (1.5-8.5); NEUTROPHILS % 56.9 % (36.0-66.0); PLATELET COUNT, AUTOMATED 271 10^3/uL (150-450); RED BLOOD COUNT 4.41 10^6/uL (4.00-5.40); WHITE BLOOD COUNT 6.4 10^3/uL (4.0-10.0)
[2024-05-24 18:13] LABS: ALBUMIN 3.7 G/DL (3.2-5.2); ALKALINE PHOSPHATASE 66 U/L (35-104); ALT/SGPT 16 U/L (7.0-40); AST/SGOT 14 U/L (<34); BILIRUBIN,TOTAL 0.3 MG/DL (0.3-1.2); BLOOD UREA NITROGEN 12 MG/DL (9-23); CALCIUM LEVEL 8.8 MG/DL (8.5-10.1); CARBON DIOXIDE LEVEL 24 MMOL/L (20-31); CHLORIDE LEVEL 108 MMOL/L (98-107); CREATININE FOR GFR 0.81 MG/DL (0.55-1.30); GLOMERULAR FILTRATION RATE > 60.0 (>58); GLUCOSE, FASTING 193 MG/DL (60-100); IRON (FE) 42 UG/DL (50-170); PERCENT SATURATION 14.6 % (13.2-45.0); POTASSIUM SERUM 4.1 MMOL/L (3.5-5.1); SODIUM LEVEL 141 MMOL/L (136-145); TOTAL IRON BINDING CAPACITY 287 UG/DL (250-425); TOTAL PROTEIN 6.8 G/DL (5.7-8.2)
[2024-05-24 18:14] LABS: FERRITIN 31.3 NG/ML (7.3-270.7); VITAMIN B12 LEVEL 358 PG/ML (211-911)
== END ==
LOC: M PLALAB 15:56
PROVIDERS: ATTEND Internal Medicine Hematology & Oncology
DX: D50.9 Iron deficiency anemia, unspecified (principal)

== ENCOUNTER → 2024-08-26 | Outpatient (CLI) | payer OTHER | LOC: M WUC 11:33 | PROVIDERS: ATTEND Student in an Organized Health Care Education/Training Program | DX: M79.644 Pain in right finger(s) (principal); S62.601A Fracture of unspecified phalanx of left index finger, initial encounter for closed fracture; X58.XXXA Exposure to other specified factors, initial encounter; Y92.9 Unspecified place or not applicable; Y93.9 Activity, unspecified; Y99.8 Other external cause status ==

== ENCOUNTER → 2025-02-07 | Outpatient (CLI) | payer OTHER ==
[2025-02-07 08:12] LABS: BASO # 0.0 10^3/uL (0.0-0.2); BASO % 0.8 % (0.0-1.0); EOS # 0.1 10^3/uL (0.0-0.5); EOS % 2.0 % (0.0-3.0); LYMPH # 1.8 10^3/uL (1.5-5.0); LYMPH % 37.1 % (24.0-44.0); MONO # 0.6 10^3/uL (0.0-0.8); MONO % 11.7 % (2.0-8.0); NEUTROPHILS # 2.3 10^3/uL (1.5-8.5); NEUTROPHILS % 48.0 % (36.0-66.0); PLATELET COUNT, AUTOMATED 276 10^3/uL (150-450)
[2025-02-07 08:43] LABS: VITAMIN B12 LEVEL 393 PG/ML (211-911)
[2025-02-07 08:44] LABS: ALT/SGPT 14 U/L (7.0-40); AST/SGOT 18 U/L (<34); CALCIUM LEVEL 8.5 MG/DL (8.5-10.1); CARBON DIOXIDE LEVEL 26 MMOL/L (20-31); CHLORIDE LEVEL 110 MMOL/L (98-107); CREATININE FOR GFR 0.76 MG/DL (0.55-1.30); GLOMERULAR FILTRATION RATE > 90.0 (>58); IRON (FE) 93 UG/DL (50-170); PERCENT SATURATION 33.2 % (13.2-45.0); POTASSIUM SERUM 4.0 MMOL/L (3.5-5.1); SODIUM LEVEL 144 MMOL/L (136-145)
[2025-02-07 08:47] LABS: TOTAL 25(OH) VITAMIN D 33.6 NG/ML (20.0-100.0)
== END ==
LOC: M LAB 06:32
PROVIDERS: ATTEND Internal Medicine
DX: D50.9 Iron deficiency anemia, unspecified (principal)